=== PATIENT | female | born 1970 | race Caucasian/White ===

== ENCOUNTER 2019-06-25 07:50 | Emergency (ER) | payer BC, SELFPAY ==
[2019-01-18 08:31] VITALS: BMI 21.0
[2019-06-25 07:51] VITALS: BP 155/87; PULSE 121; RESP 15; TEMP 36.8; BMI 18.8
--- NOTE | 2019-06-25 08:06 | EKG12_ITS ---
Test Reason : Blood Pressure : / mmHG Vent. Rate : 094 BPM Atrial Rate : 094 BPM P-R Int : 114 ms QRS Dur : 100 ms QT Int : 380 ms P-R-T Axes : 051 -15 069 degrees QTc Int : 475 ms Normal sinus rhythm Devfh-Xslwoyhtz-Hawiy Abnormal ECG Confirmed by STEPHANIE JACINTO ([id number]), writer editor JENSEN MATOS ([id number]) on 06/30/2019 9:18:59 AM Referred By: Confirmed By:STEPHANIE JACINTO
--- NOTE | 2019-06-25 08:07 | ED.VIS.GEN ---
History of Present Illness Chief Complaint: Back Informant: Patient Onset: Weeks Maximum Severity: Mild Narrative: Patient presents complaining of sharp stabbing pain primarily to the left parascapular area but sometimes to her entire back for 1 week in addition she is having a sharp stabbing pain to the left facial area for same period of time. She is had no fever no cough no chest pain no numbness weakness paresthesias other than the states she feels sometimes her whole body is numb all over, she was seen at [facility] ED had ED evaluation that consisted of many things including chest x-ray CT head that were unremarkable she was started on carbamazepine told her follow-up with her family physician she continues to have spasms of pain that are paroxysmal come and go with no warning. She has no history of MO PE or DVT she takes no medications except for the carbamazepine Past Medical History - Allergies and Home Meds Allergies/Adverse Reactions: Allergies No Known Allergies Allergy (Unverified 01/18/19 08:32) Primary Care Physician: Rusty Sutton DO [Primary Care Provider] - Past Medical History: None Smoking Status: Current every day smoker Review of Systems General: Reports: - - She has start up stabbing diffuse pain involving her back that primarily is in the left parascapular area she also complains of sharp stabbing left facial pain that is also intermittent. Denies: Chills, Fever, Sweats Eyes: Denies: Visual changes - bilaterally, Diplopia ENT: Denies: Rhinorrhea, Sore throat Cardiovascular: Denies: Chest pain, Palpitations Respiratory: Denies: Dyspnea, Cough, Dyspnea on exertion Gastrointestinal: Denies: Abdominal pain, Nausea, Vomiting, Diarrhea, Melena, Hematochezia Genitourinary: Denies: Dysuria, Hematuria, Frequency Musculoskeletal: Denies: Back pain, Extremity Pain Skin: Denies: Rash, Wounds Neurological: Denies: Headache, Weakness, Numbness Physical Exam Vital Signs/Narrative: Vital Signs Temp Pulse Resp BP 06/25/19 07:51 98.2 F 121 H 15 155/87 H General: Well nourished, Well developed, No Acute Distress Head: Normocephalic, Atraumatic Eyes: Perrl, EOMI ENT: Moist mucous membranes, No rhinorrhea Neck: Supple, Nontender Cardiovascular: Regular rate, Regular rhythm, No murmurs Respiratory: No distress, CTA bilaterally, Chest nontender Abdomen: Soft, Nontender, Nondistended, Normal bowel sounds Back: Nontender, Normal Inspection Extremities: Nontender, No edema Skin: Normal color, No rash Neurological: Alert, Oriented x3, Cranial nerves II-XII grossly intact, Normal Strength, Normal Sensation, - - Her physical exam and neurologic exam unremarkable she is awake and alert head neck chest abdomen normal palpation of the chest and the back shows no focal area of pain but her points to the left parascapular area as the area that seems to be most troubling to her she has full range of motion of the shoulder this area is not tender to palpation she is able to stand and walk without difficulty her cranial nerve facial exam neck exam unremarkable Psychological: Normal affect, Normal Mood Diagnostic/Tx/Re-eval - Medical Decision Making I had a long conversation with the patient and her she assures me she had ED evaluation at [facility] that included a head CT chest x-ray, she reports only partial improvement with the carbamazepine I explained all of the above to her explained the potential differential to include a wide right of conditions, she indicates sometimes she feels if she has shooting numbness down both arms but mostly the left, I explained repeating these test that were just done a few days ago would not be of any benefit to her as she indicates they were normal she agrees that I offered her some pain management such as nonsteroidals but she refused that we did agree to obtain an EKG The patient's EKG shows a sinus rhythm there is deflection in the upstroke of the R wave that could represent Mqyho-Dsrwgwnua-Tsgdc syndrome the patient has no history of that and she has no cardiovascular symptoms of head neck chest or abdominal pain, she works reading [employer] she is very active she does not experience any exacerbation or triggering of these pains with any type of activity they are paroxysmal Patient's in no distress resting comfortably bed her exam is unchanged we did obtain CT of the neck given her symptoms a CT neck shows no fracture anything acute mild degenerative change, explained all the above to the patient this time she is comfortable discharge home follow with outpatient vitals for the management of all the above, she was also given referral to cardiology given the EKG findings of possible Zxqfw-Ovjcnijdy-Lbbqa and she is comfortable with this discharge plan ED Disposition - Plan for ED Patient: Diagnosis: Upper back pain Instructions: BACK SPASM, No Trauma, Back Sprain/Strain Referrals: Herman,Rusty, DO [Primary Care Provider] - Willis Pollock MD [STAFF PHYSICIAN] -
--- NOTE | 2019-06-25 08:23 | CT_ITS ---
STUDY: CT CERVICAL SPINE WITHOUT CONTRAST REASON FOR EXAM: Female, 49 years old. BILAT ARM PAIN, BURNING/NUMBNESS BACK OF NECK, NO KNOWN INJURY RADIATION DOSAGE (If Supplied By Facility): CTDIvol = ( 13.49 ) mGy, DLP = ( 322.64 ) mGycm TECHNIQUE: High resolution transaxial imaging was performed without contrast material. Sagittal and coronal images were reconstructed. Individualized dose optimization techniques were used for this CT. COMPARISON: None FINDINGS: Normal craniovertebral junction. Normal anterior atlantoaxial articulation. Normal odontoid process. 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 Normal vertebral bodies and posterior osseous elements. C2-3: Normal endplates. Normal disc height and morphology. Normal central canal and intervertebral neuroforamina. C3-4: There is minimal disc space narrowing is no significant neural foramina narrowing or central stenosis. C4-5: Normal endplates. Normal disc height and morphology. Normal central canal and intervertebral neuroforamina. C5-6: There is facet arthropathy left greater than right without neural foramina narrowing or central stenosis. C6-7: Normal endplates. Normal disc height and morphology. Normal central canal and intervertebral neuroforamina. C7-T1: Normal endplates. Normal disc height and morphology. Normal central canal and intervertebral neuroforamina. There is emphysematous change in the lung apices. CT/Spine Cervical without Contras IMPRESSION: Minimal degenerative change within the cervical spine. No visualized acute fracture. Pulmonary emphysema and biapical scarring. Electronically Signed: Yuridia Lr MD at 8:54 EDT Tel , Service support ,
[2019-06-25 09:26] VITALS: BP 102/60; PULSE 72; RESP 18
== END 2019-06-25 09:27 | disposition home or self-care (01) ==
LOC: ED 08:11
PROVIDERS: Emergency Provider Emergency Medicine; PCP Family Medicine
DX: M54.9 Dorsalgia, unspecified (principal); R20.0 Anesthesia of skin; R51 Headache; F17.200 Nicotine dependence, unspecified, uncomplicated
CPT/HCPCS: 72125; 93005; 99282

== ENCOUNTER → 2019-08-02 12:03 | Outpatient (CLI) | payer BC, SELFPAY ==
[2019-07-28 15:50] VITALS: BMI 18.7
--- NOTE | 2019-08-02 12:04 | MRI_ITS ---
STUDY: MRI BRAIN WITH AND WITHOUT CONTRAST REASON FOR EXAM: Female, 49 years old. numbness in neck, cheeks to chin, upper back x 2 months TECHNIQUE: Standardized multiplanar fat and water weighted pulse sequences were obtained. IV Yes YES was administered for the contrast portion of the examination. COMPARISON: None. FINDINGS: Normal size of the ventricles and extra-axial spaces for the patient''s age. Normal white matter tracts of the supratentorial brain. There is no evidence for recent intracranial ischemia or other cause of cytotoxic edema on diffusion weighted imaging (DWI). Normal T2* images of the brain without demonstrated susceptibility artifact. There is no demonstrated hemosiderin stain. There are no demyelinating plagues of the supratentorial brain, brainstem or cerebellum. There are no findings suspicious for multiple sclerosis (MS). No hydrocephalus. No midline shift. Normal bilateral basal ganglia. Normal thalami. There is no extra-axial fluid accumulation. Normal flow voids within the major intracranial circulation suggesting patency by spin echo criteria. Normal venous enhancement. There is no enhancing intra-axial or extra-axial abnormality. No demonstrated abnormal dural or meningeal enhancement. Normal sella turcica, pituitary gland, infundibular stalk, optic chiasm and hypothalamus. Normal tectal plate and pineal gland. Normal midbrain, romi and medulla. Normal cerebellum. Normal basal cisterns. Normal bilateral temporal bones. Normal bilateral internal auditory canals. No demonstrated orbital abnormality, within the constraints of a routine brain study. Mild mucosal thickening is present in the left maxillary sinus. Normal calvarium and skull base. Normal visualized soft tissue structures. MRI/Brain W/WO Contrast IMPRESSION: 1. Negative unenhanced and enhanced MRI of the brain. 2. No demonstrated acute or significant intracranial process on the current exam. Electronically Signed: Talib Aquino MD at 19:08 EDT , Service support ,
== END ==
PROVIDERS: PCP Family Medicine; Referring Provider Family Medicine; Visit Provider Family Medicine
DX: R20.2 Paresthesia of skin (principal); R20.0 Anesthesia of skin
CPT/HCPCS: 70553; A9575

== ENCOUNTER → 2019-08-04 17:42 | Outpatient (CLI) | payer BC, SELFPAY ==
[2019-08-02 15:42] VITALS: BMI 18.8
[2019-08-04 13:07] VITALS: BMI 18.8
--- NOTE | 2019-08-04 18:09 | MRI_ITS ---
STUDY: MRI CERVICAL SPINE WITHOUT CONTRAST REASON FOR EXAM: Female, 49 years old. arm numbness bilaterally TECHNIQUE: Standardized fat and water weighted pulse sequences were obtained in the sagittal and axial planes. COMPARISON: None FINDINGS: Normal foramen magnum and brainstem-cervical cord junction. Normal craniovertebral junction. Normal anterior atlantoaxial articulation. Normal odontoid process. Normal cervical lordosis. Normal vertebral bodies and posterior osseous elements. C2-3: Normal endplates. Normal disc height, signal and morphology. Normal central canal and intervertebral neural foramina. C3-4: Normal endplates. Normal disc height, signal and minor bulging of the disc. Normal central canal and intervertebral neural foramina. C4-5: Normal endplates. Normal disc height, signal and morphology. Normal central canal and intervertebral neural foramina. C5-6: Normal endplates. Normal disc height, signal and morphology. Normal central canal and intervertebral neural foramina. C6-7: Normal endplates. Normal disc height, signal and morphology. Normal central canal and intervertebral neural foramina. C7-T1: Normal endplates. Normal disc height, signal and morphology. Normal central canal and intervertebral neural foramina. Normal cervical cord. Normal visualized soft tissue structures. MRI/Spine Cervical (Routine) IMPRESSION: No evidence for acute fracture or other significant bony pathology.. Minor bulging of the disc at C3-4. No focal disc protrusion significant spinal stenosis or cord compression. Electronically Signed: Teo Zamorano MD at 20:21 EDT , Service support ,
== END ==
PROVIDERS: PCP Family Medicine; Referring Provider Family Medicine; Visit Provider Family Medicine
DX: R20.2 Paresthesia of skin (principal); R20.0 Anesthesia of skin
CPT/HCPCS: 72141

== ENCOUNTER → 2019-08-04 | Outpatient (CLI) | payer BC, SELFPAY ==
[2019-08-04 13:07] VITALS: BMI 18.8
== END | disposition home or self-care (01) ==
LOC: LABSPEC 14:28
PROVIDERS: PCP Family Medicine; Referring Provider Internal Medicine; Visit Provider Internal Medicine
DX: R07.9 Chest pain, unspecified (principal)
CPT/HCPCS: 84484

== ENCOUNTER → 2019-08-25 13:15 | Outpatient (CLI) | payer BC, SELFPAY ==
[2019-08-18 19:06] VITALS: BMI 18.8
[2019-08-25 10:09] VITALS: BMI 19.5
--- NOTE | 2019-08-25 13:17 | EKG12_ITS ---
Test Reason : TACHY Blood Pressure : / mmHG Vent. Rate : 088 BPM Atrial Rate : 088 BPM P-R Int : 154 ms QRS Dur : 076 ms QT Int : 382 ms P-R-T Axes : 028 002 019 degrees QTc Int : 462 ms Normal sinus rhythm Left ventricular hypertrophy Abnormal ECG Confirmed by EFE OBRIEN, QUANG ([id number]), greeting card editor JENSEN MATOS ([id number]) on 08/29/2019 1:15:11 PM Referred By: Kelsey Curran Confirmed By:BERNARDO WILKS MD
--- NOTE | 2019-08-25 13:17 | US_ITS ---
STUDY: THYROID ULTRASOUND REASON FOR EXAM: Female, 49 years old. Hyperthyroidism TECHNIQUE: Ultrasound evaluation of the thyroid was performed with real-time and static pollack-scale imaging. COMPARISON: None. FINDINGS: RIGHT LOBE: The right lobe of the thyroid gland measures 4.8 cm x 1.4 cm x 1.2 cm. There is a heterogeneous echotexture. There are no demonstrated solid, cystic or complex lesions. LEFT LOBE: The left lobe of the thyroid gland measures 5 cm x 1.3 cm x 1.4 cm. There is a heterogeneous echotexture. There are no demonstrated solid, cystic or complex lesions. ISTHMUS: The isthmus measures 4.0 mm. The regional lymph nodes are normal. US/Thyroid IMPRESSION: Heterogeneous appearance of both lobes of the thyroid. Electronically Signed: Josh Miranda, at 14:27 EDT , Service support ,
[2019-08-25 13:51] LABS: Free T3 7.1 pg/mL (2.18-3.98); T4 Free Direct 1.93 ng/dL (0.76-1.46)
[2019-08-26 18:00] LABS: Thyroid Peroxidase AB 45 IU/mL (0-34)
== END ==
PROVIDERS: Nurse Practitioner Family; PCP Family Medicine; Referring Provider Nurse Practitioner Family; Visit Provider Nurse Practitioner Family
DX: E05.90 Thyrotoxicosis, unspecified without thyrotoxic crisis or storm (principal); R00.0 Tachycardia, unspecified
CPT/HCPCS: 76536; 84439; 84481; 86376; 93005

== ENCOUNTER → 2019-09-06 12:13 | Outpatient (CLI) | payer BC, SELFPAY ==
[2019-08-18 19:06] VITALS: BMI 18.8
[2019-08-25 16:22] VITALS: BMI 18.8
--- NOTE | 2019-09-06 12:14 | STE_ITS ---
Reason For Study: WPW, CHEST PAIN Stress Results Protocol: Stress Echocardiogram Maximum Predicted HR: 173 bpm Target HR: 147 bpm % Maximum Predicted HR: 105 % DurationHeart Rate Stage (mm:ss) (bpm) BP Comment BASELINE 90 128/78STATES SHE ALWAYS HAS CP RADIATING TO JAW CLIFF PROTOCOL- STAGE 1 3:00 134 124/80NO INCREASE IN CP CLIFF RPOTOCOL- STAGE 2 3:00 160 148/72NO CHANGE IN SX CLIFF PROTOCOL- STAGE 3 3:00 169 150/78NO CHANGE IN SX CLIFF PROTOCOL- STAGE 4 1:00 181 / NO CHANGE IN SX RECOVERY 105 124/78 Stress Duration: 10:00 mm:ss Maximum Stress HR: 181 bpm Baseline Echocardiogram Findings The estimated ejection fraction is 65 %. Stress Echo Wall motion Data Resting WM Intermediate WM Stress WM Resting Wall Motion Wall Motion Stress No regional wall motion No regional wall motion abnormalities noted. abnormalities noted. EKG Data The baseline ECG displays normal sinus rhythm. The patient exercised according to the regular Cliff protocol for a total duration of 10:01. The maximum heart rate attained was 181 beats per minute. This was 104% of maximum predicted heart rate. The patient exercised into stage 4 of the Cliff protocol. During stress, there were no ST or T wave changes noted to suggest ischemia. No arrhythmias noted. No clinical angina was noted. Interpretation Summary The estimated ejection fraction is 65 %. Normal, adequate, treadmill echocardiogram. Negative for ischemia by EKG and echocardiographic criteria. No anginal symptoms noted. No arrhythmias noted. Average exercise capacity for age. Final LVEF is 75%. Test terminated due to attainment of target heart rate. Patient tolerated procedure well. No complications. Ordering Physician: Parth Castelan Referring Physician: Parth Castelan Performed By: Claudia Shah, RDCS, RVT
== END ==
PROVIDERS: PCP Family Medicine; Referring Provider Internal Medicine Cardiovascular Disease; Visit Provider Internal Medicine Cardiovascular Disease
DX: I45.6 Pre-excitation syndrome (principal); R07.9 Chest pain, unspecified; R20.0 Anesthesia of skin; R20.2 Paresthesia of skin; I10 Essential (primary) hypertension
CPT/HCPCS: 93017; 93350

== ENCOUNTER → 2019-09-14 14:40 | Outpatient (CLI) | payer BC, SELFPAY ==
[2019-09-14 13:59] VITALS: BMI 18.8
[2019-09-14 16:22] LABS: Free T3 5.1 pg/mL (2.18-3.98); Thyroid Stim Hormone (TSH) < 0.01 uIU/mL (0.358-3.74)
== END ==
PROVIDERS: PCP Family Medicine; Referring Provider Nurse Practitioner Family; Visit Provider Nurse Practitioner Family
DX: E05.90 Thyrotoxicosis, unspecified without thyrotoxic crisis or storm (principal)
CPT/HCPCS: 36415; 84439; 84443; 84481

== ENCOUNTER → 2019-10-05 10:28 | Outpatient (CLI) | payer BC, SELFPAY ==
[2019-10-03 08:46] VITALS: BMI 18.8
[2019-10-05 13:14] LABS: Free T3 4.6 pg/mL (2.18-3.98); T4 Free Direct 1.76 ng/dL (0.76-1.46); Thyroid Stim Hormone (TSH) < 0.01 uIU/mL (0.358-3.74)
== END ==
PROVIDERS: PCP Family Medicine; Referring Provider Nurse Practitioner Family; Visit Provider Nurse Practitioner Family
DX: E05.90 Thyrotoxicosis, unspecified without thyrotoxic crisis or storm (principal)
CPT/HCPCS: 36415; 84439; 84443; 84481

== ENCOUNTER → 2019-11-02 12:25 | Outpatient (CLI) | payer BC, SELFPAY ==
[2019-10-03 08:46] VITALS: BMI 18.8
[2019-11-02 15:55] LABS: Free T3 3.5 pg/mL (2.18-3.98); T4 Free Direct 1.37 ng/dL (0.76-1.46); Thyroid Stim Hormone (TSH) < 0.01 uIU/mL (0.358-3.74)
== END ==
PROVIDERS: PCP Family Medicine; Referring Provider Internal Medicine Endocrinology, Diabetes & Metabolism; Visit Provider Internal Medicine Endocrinology, Diabetes & Metabolism
DX: E05.00 Thyrotoxicosis with diffuse goiter without thyrotoxic crisis or storm (principal)
CPT/HCPCS: 36415; 84439; 84443; 84481

== ENCOUNTER → 2019-11-23 13:09 | Outpatient (CLI) | payer BC, SELFPAY ==
[2019-11-16 15:03] VITALS: BMI 19.8
[2019-11-23 16:27] LABS: Free T3 2.7 pg/mL (2.18-3.98); T4 Free Direct 1.11 ng/dL (0.76-1.46); Thyroid Stim Hormone (TSH) < 0.01 uIU/mL (0.358-3.74)
== END ==
PROVIDERS: PCP Family Medicine; Referring Provider Internal Medicine Endocrinology, Diabetes & Metabolism; Visit Provider Internal Medicine Endocrinology, Diabetes & Metabolism
DX: E05.00 Thyrotoxicosis with diffuse goiter without thyrotoxic crisis or storm (principal)
CPT/HCPCS: 36415; 84439; 84443; 84481

== ENCOUNTER → 2019-12-22 14:47 | Outpatient (CLI) | payer BC, SELFPAY ==
[2019-11-16 15:03] VITALS: BMI 19.8
[2019-12-22 17:13] LABS: Free T3 2.1 pg/mL (2.18-3.98); T4 Free Direct 1.01 ng/dL (0.76-1.46); Thyroid Stim Hormone (TSH) 0.07 uIU/mL (0.358-3.74)
== END ==
PROVIDERS: PCP Family Medicine; Referring Provider Internal Medicine Endocrinology, Diabetes & Metabolism; Visit Provider Internal Medicine Endocrinology, Diabetes & Metabolism
DX: E05.00 Thyrotoxicosis with diffuse goiter without thyrotoxic crisis or storm (principal)
CPT/HCPCS: 36415; 84439; 84443; 84481

== ENCOUNTER → 2020-01-20 13:55 | Outpatient (CLI) | payer BC, SELFPAY ==
[2019-11-16 15:03] VITALS: BMI 19.8
[2020-01-20 16:03] LABS: Free T3 2.2 pg/mL (2.18-3.98); T4 Free Direct 0.69 ng/dL (0.76-1.46); Thyroid Stim Hormone (TSH) 7.15 uIU/mL (0.358-3.74)
== END ==
PROVIDERS: PCP Family Medicine; Referring Provider Internal Medicine Endocrinology, Diabetes & Metabolism; Visit Provider Internal Medicine Endocrinology, Diabetes & Metabolism
DX: E05.00 Thyrotoxicosis with diffuse goiter without thyrotoxic crisis or storm (principal)
CPT/HCPCS: 36415; 84439; 84443; 84481

== ENCOUNTER 2020-02-16 11:47 | Outpatient (RCR) | payer BC, SELFPAY ==
[2020-01-30 14:38] VITALS: BMI 20.3
[2020-02-16 16:18] LABS: Free T3 2.1 pg/mL (2.18-3.98); T4 Free Direct 0.69 ng/dL (0.76-1.46)
== END 2020-03-12 23:59 ==
LOC: BIMLAB 11:47
PROVIDERS: PCP Family Medicine; Referring Provider Internal Medicine Endocrinology, Diabetes & Metabolism; Visit Provider Internal Medicine Endocrinology, Diabetes & Metabolism
DX: E05.00 Thyrotoxicosis with diffuse goiter without thyrotoxic crisis or storm (principal)
CPT/HCPCS: 36415; 84439; 84443; 84481

== ENCOUNTER 2020-03-23 15:10 | Outpatient (RCR) | payer BC, SELFPAY ==
[2020-03-12 14:24] VITALS: BMI 20.9
[2020-03-13 14:46] VITALS: BMI 20.3
[2020-03-23 17:31] LABS: Free T3 2.1 pg/mL (2.18-3.98); T4 Free Direct 0.82 ng/dL (0.76-1.46); Thyroid Stim Hormone (TSH) 9.42 uIU/mL (0.358-3.74)
== END 2020-04-12 23:59 ==
LOC: BIMLAB 15:10
PROVIDERS: PCP Family Medicine; Referring Provider Internal Medicine Endocrinology, Diabetes & Metabolism; Visit Provider Internal Medicine Endocrinology, Diabetes & Metabolism
DX: E05.00 Thyrotoxicosis with diffuse goiter without thyrotoxic crisis or storm (principal)
CPT/HCPCS: 36415; 84439; 84443; 84481

== ENCOUNTER → 2020-04-11 13:40 | Outpatient (CLI) | payer BC, SELFPAY ==
[2020-03-13 14:46] VITALS: BMI 20.3
[2020-04-11 15:52] LABS: Free T3 2.4 pg/mL (2.18-3.98); Thyroid Stim Hormone (TSH) 5.66 uIU/mL (0.358-3.74)
== END ==
PROVIDERS: Internal Medicine Endocrinology, Diabetes & Metabolism; PCP Family Medicine; Visit Provider Family Medicine
DX: E05.00 Thyrotoxicosis with diffuse goiter without thyrotoxic crisis or storm (principal)
CPT/HCPCS: 36415; 84439; 84443; 84481

== ENCOUNTER 2020-05-10 13:19 | Outpatient (RCR) | payer BC, SELFPAY ==
[2020-03-13 14:46] VITALS: BMI 20.3
[2020-05-10 15:34] LABS: Free T3 2.5 pg/mL (2.18-3.98); T4 Free Direct 0.97 ng/dL (0.76-1.46); Thyroid Stim Hormone (TSH) 3.64 uIU/mL (0.358-3.74)
== END 2020-05-13 23:59 ==
LOC: BIMLAB 13:19
PROVIDERS: PCP Family Medicine; Referring Provider Internal Medicine Endocrinology, Diabetes & Metabolism; Visit Provider Internal Medicine Endocrinology, Diabetes & Metabolism
DX: E05.00 Thyrotoxicosis with diffuse goiter without thyrotoxic crisis or storm (principal)
CPT/HCPCS: 36415; 84439; 84443; 84481

== ENCOUNTER → 2020-05-30 | Outpatient (CLI) | payer BC, SELFPAY ==
[2020-05-30 14:27] VITALS: BMI 20.9
[2020-06-04 13:22] LABS: HPV Reflexed? NOT INDICATED
== END | disposition home or self-care (01) ==
LOC: LABSPEC 15:17
PROVIDERS: PCP Family Medicine; Referring Provider Family Medicine; Visit Provider Family Medicine
DX: Z01.419 Encounter for gynecological examination (general) (routine) without abnormal findings (principal)
CPT/HCPCS: 88175; G0145

== ENCOUNTER 2020-06-07 13:41 | Outpatient (RCR) | payer BC, SELFPAY ==
[2020-03-13 14:46] VITALS: BMI 20.3
[2020-05-30 14:27] VITALS: BMI 20.9
[2020-06-07 16:07] LABS: Free T3 2.3 pg/mL (2.18-3.98); T4 Free Direct 1.01 ng/dL (0.76-1.46); Thyroid Stim Hormone (TSH) 2.19 uIU/mL (0.358-3.74)
== END 2020-06-10 23:59 ==
LOC: BIMLAB 13:41
PROVIDERS: PCP Family Medicine; Referring Provider Internal Medicine Endocrinology, Diabetes & Metabolism; Visit Provider Internal Medicine Endocrinology, Diabetes & Metabolism
DX: E05.00 Thyrotoxicosis with diffuse goiter without thyrotoxic crisis or storm (principal)
CPT/HCPCS: 36415; 84439; 84443; 84481

== ENCOUNTER → 2020-07-07 08:39 | Outpatient (CLI) | payer BC, SELFPAY ==
[2020-06-25 14:44] VITALS: BMI 21.9
[2020-07-04 14:52] VITALS: BMI 21.2
--- NOTE | 2020-07-07 08:43 | US_ITS ---
STUDY: ABDOMINAL ULTRASOUND REASON FOR EXAM: Female, 50 years old. Chronic left upper quadrant pain, nausea TECHNIQUE: Transabdominal ultrasound was performed with real-time and static pollack scale imaging. TECHNICAL QUALITY: Limited. Examination limited by bowel gas. COMPARISON: None. FINDINGS: Liver: The liver measures 15.5 cm. There is normal echogenicity of the liver. The bile ducts are within normal limits. There is hepatic color flow. The direction of portal flow is hepatopetal. There is no demonstrated mass lesion. Portal vein measurement: Gallbladder: Normal distended gallbladder. The gallbladder wall measures 1 mm. There is a negative sonographic Stone''s sign. There is no pericholecystic fluid. There are no gallstones. Common Bile Duct (C.B.D.): The common bile duct measures 3 mm. Pancreas: Visualized pancreas is sonographically normal Spleen: Normal size of the spleen. The spleen measures 8.3 cm. Right Kidney: Normal size of the right kidney. The right kidney measures 10.2 x 4.8 x 4.1 cm. Normal renal cortex. The right cortex measures 0.8 cm. There is no demonstrated renal mass or cyst. There is no right hydronephrosis. Left Kidney: Normal size of the left kidney. The left kidney measures 9.2 x 4.5 x 4.8 cm. Normal renal cortex. The left cortex measures 1.3 cm. There is no demonstrated renal mass or cyst. There is no left hydronephrosis. Aorta: Tapers normally I.V.C.: The IVC is patent. There is no ascites. US/Abdomen Complete IMPRESSION: No suspicious sonographic findings Electronically Signed: Samir Song MD at 10:41 EDT , Service support ,
== END ==
PROVIDERS: PCP Family Medicine; Referring Provider Nurse Practitioner Family; Visit Provider Nurse Practitioner Family
DX: R10.9 Unspecified abdominal pain (principal)
CPT/HCPCS: 76700

== ENCOUNTER → 2020-07-11 12:32 | Outpatient (CLI) | payer BC, SELFPAY ==
[2020-07-04 14:52] VITALS: BMI 21.2
[2020-07-11 16:04] LABS: Free T3 2.2 pg/mL (2.18-3.98); T4 Free Direct 0.95 ng/dL (0.76-1.46); Thyroid Stim Hormone (TSH) 2.31 uIU/mL (0.358-3.74)
== END ==
PROVIDERS: PCP Family Medicine; Visit Provider Internal Medicine Endocrinology, Diabetes & Metabolism
DX: E05.90 Thyrotoxicosis, unspecified without thyrotoxic crisis or storm (principal)
CPT/HCPCS: 36415; 84439; 84443; 84481

== ENCOUNTER → 2020-07-12 15:25 | Outpatient (CLI) | payer BC, SELFPAY ==
[2020-05-30 14:27] VITALS: BMI 20.9
[2020-07-04 14:52] VITALS: BMI 21.2
--- NOTE | 2020-07-12 15:27 | BI_ITS ---
MAMMOGRAPHY - BILATERAL SCREENING REASON FOR EXAM: Female, 50 years old. Routine annual screening examination. PERTINENT HISTORY: Non-contributory. TECHNIQUE: Digital bilateral breast koko (3D mammographic acquisition) in the CC and MLO projections. 2-D mediolateral oblique (MLO) and craniocaudad (CC) views of both breasts were obtained. CAD: Full Field Digital Mammography with Computer Added Detection was performed. COMPARISON: Comparison is made with prior examination dated 06/21/2019. FINDINGS: Breast Composition: The breasts are extremely dense, which lowers the sensitivity of mammography. There are no dominant masses or suspicious calcifications. No other significant abnormalities are identified. There has been no significant change since the prior study. BI/SCRN MAMM (CAD)W/KOKO BILAT IMPRESSION: Stable bilateral screening mammogram. Yearly follow-up mammogram recommended. (A) ASSESSMENT CATEGORY: BIRADS Category 1: Negative. A letter regarding these results will be sent to the patient by the facility within 30 days. Approximately 10% of breast cancers are not detected by mammography. A normal mammogram should not delay biopsy of a clinically suspicious abnormality. [id number] Electronically Signed: Josh Miranda MD at 8:09 EDT , Service support ,
== END ==
PROVIDERS: PCP Family Medicine; Referring Provider Family Medicine; Visit Provider Family Medicine
DX: Z12.31 Encounter for screening mammogram for malignant neoplasm of breast (principal)
CPT/HCPCS: 77063; 77067

== ENCOUNTER 2020-08-07 13:16 | Outpatient (RCR) | payer BC, SELFPAY ==
[2020-05-30 14:27] VITALS: BMI 20.9
[2020-07-04 14:52] VITALS: BMI 21.2
[2020-08-07 15:33] LABS: Free T3 2.6 pg/mL (2.18-3.98); T4 Free Direct 0.92 ng/dL (0.76-1.46); Thyroid Stim Hormone (TSH) 2.98 uIU/mL (0.358-3.74)
== END 2020-08-10 23:59 ==
LOC: BIMLAB 13:16
PROVIDERS: PCP Family Medicine; Referring Provider Internal Medicine Endocrinology, Diabetes & Metabolism; Visit Provider Internal Medicine Endocrinology, Diabetes & Metabolism
DX: E05.00 Thyrotoxicosis with diffuse goiter without thyrotoxic crisis or storm (principal)
CPT/HCPCS: 36415; 84439; 84443; 84481

== ENCOUNTER → 2020-08-29 15:49 | Outpatient (CLI) | payer BC, SELFPAY ==
[2020-08-29 14:45] VITALS: BMI 21.6
--- NOTE | 2020-08-29 15:55 | RAD_ITS ---
STUDY: X-RAY CHEST REASON FOR EXAM: Female, 50 years old. SOB, Cough TECHNIQUE: 2 views COMPARISON: None. FINDINGS: Benign apical pleural changes bilaterally. Focal mild tenting of the medial right diaphragm. Negative for consolidation, atelectasis or acute infiltrates. Negative for pleural effusion. Normal size heart. Normal mediastinum and david. Normal visualized pulmonary arteries. Normal visualized aortic arch and descending thoracic aorta. Normal visualized thoracic spine. Normal visualized ribs, clavicles, and shoulders. There is no demonstrated abnormality of the visualized soft tissue structures of the upper abdomen. RAD/Chest PA and Lateral IMPRESSION: No acute cardiopulmonary findings. Mild chronic changes as described above. Negative for consolidation, atelectasis, cardiomegaly or pleural effusion. Electronically Signed: Jimena Crooks MD at 16:05 EDT , Service support ,
== END ==
PROVIDERS: PCP Family Medicine; Referring Provider Nurse Practitioner Family; Visit Provider Nurse Practitioner Family
DX: R06.00 Dyspnea, unspecified (principal); R07.9 Chest pain, unspecified
CPT/HCPCS: 71046

== ENCOUNTER 2020-09-27 13:14 | Outpatient (RCR) | payer BC, SELFPAY ==
[2020-08-11 00:13] VITALS: BMI 20.3
[2020-08-29 14:45] VITALS: BMI 21.6
[2020-09-27 15:26] LABS: Free T3 2.3 pg/mL (2.18-3.98); T4 Free Direct 0.98 ng/dL (0.76-1.46); Thyroid Stim Hormone (TSH) 2.22 uIU/mL (0.358-3.74)
== END 2020-10-10 23:59 ==
LOC: BIMLAB 13:14
PROVIDERS: PCP Family Medicine; Referring Provider Internal Medicine Endocrinology, Diabetes & Metabolism; Visit Provider Internal Medicine Endocrinology, Diabetes & Metabolism
DX: E05.00 Thyrotoxicosis with diffuse goiter without thyrotoxic crisis or storm (principal)
CPT/HCPCS: 36415; 84439; 84443; 84481

== ENCOUNTER → 2020-11-07 14:23 | Outpatient (CLI) | payer BC, SELFPAY ==
[2020-10-19 13:45] VITALS: BMI 21.6
--- NOTE | 2020-11-07 14:40 | CT_ITS ---
STUDY: CT MAXILLOFACIAL SINUSES REASON FOR EXAM: Female, 50 years old. CHRONIC SINUSITIS RADIATION DOSAGE (If Supplied By Facility): CTDIvol = ( 33.06 ) mGy, DLP = ( 850.38 ) mGycm TECHNIQUE: The patient was scanned in a multi detector CT scanner. High resolution axial imaging was performed without the administration of intravenous contrast material. Sagittal and coronal images were reconstructed. Individualized dose optimization techniques were used for this CT. COMPARISON: None. FINDINGS: FRONTAL SINUSES: Normal aeration, without mucosal inflammatory disease. ETHMOIDAL SINUSES: Normal aeration, without mucosal inflammatory disease. MAXILLARY SINUSES: There are air-fluid levels in both maxillary sinuses in keeping with bilateral maxillary sinusitis. SPHENOIDAL SINUSES: Normal aeration, without mucosal inflammatory disease. There is patency of the bilateral maxillary infundibuli with normal uncinate processes, ethmoid bullae, and hiatus semilunaris. Normal bilateral middle turbinates. Normal bilateral inferior turbinates. There is a right sided nasal septal deviation, but without a nasal septal spur. There is patency of the bilateral nasal airways. The visualized osseous structures are normal. The visualized bilateral orbital contents are normal. CT/Sinus/Facial Bone IMPRESSION: Bilateral maxillary sinusitis. Electronically Signed: Josh Miranda MD at 15:19 EDT , Service support ,
== END ==
PROVIDERS: PCP Family Medicine; Referring Provider Otolaryngology Otolaryngology/Facial Plastic Surgery; Visit Provider Otolaryngology Otolaryngology/Facial Plastic Surgery
DX: J32.9 Chronic sinusitis, unspecified (principal)
CPT/HCPCS: 70486

== ENCOUNTER 2020-11-19 13:39 | Outpatient (RCR) | payer BC, SELFPAY ==
[2020-10-03 14:56] VITALS: BMI 21.6
[2020-10-19 13:45] VITALS: BMI 21.6
[2020-11-19 15:50] LABS: Free T3 2.3 pg/mL (2.18-3.98); T4 Free Direct 0.94 ng/dL (0.76-1.46); Thyroid Stim Hormone (TSH) 2.59 uIU/mL (0.358-3.74)
== END 2020-12-11 23:59 ==
LOC: BIMLAB 13:39
PROVIDERS: PCP Family Medicine; Referring Provider Internal Medicine Endocrinology, Diabetes & Metabolism; Visit Provider Internal Medicine Endocrinology, Diabetes & Metabolism
DX: E05.00 Thyrotoxicosis with diffuse goiter without thyrotoxic crisis or storm (principal)
CPT/HCPCS: 36415; 84439; 84443; 84481

== ENCOUNTER → 2020-12-18 | Outpatient (CLI) | payer BC, SELFPAY ==
[2020-12-20 20:08] LABS: Covid Inpatient test code BILL Performed (.)
== END | disposition home or self-care (01) ==
LOC: LABSPEC 15:35
PROVIDERS: PCP Family Medicine; Referring Provider Otolaryngology; Visit Provider Otolaryngology
DX: Z03.818 Encounter for observation for suspected exposure to other biological agents ruled out (principal); Z11.59 Encounter for screening for other viral diseases
CPT/HCPCS: 87635; U0005; U0003

== ENCOUNTER → 2020-12-25 | Outpatient (CLI) | payer BC, SELFPAY ==
--- NOTE | 2020-12-25 08:26 | NASAL_PTH ---
PATIENT: AVELINA APONTE [facility] U#:[id number] AGE/SX: 50/F ROOM: RE12/25/[address]: Dr. Wilber Mendoza MD : 1970 BED: DIS: 12/25/2020 SPEC #: [id number] RECD: 12/25/20 14:46 STATUS: SOLANGE REQ #: [id number] ZANE: 12/25/20 08:[address]: Wilber Mendoza DEPT: SURGICAL PATHOLOGY RECD BY: Emily De Guzman ENTERED: 12/26/20 11:39 SP TYPE: NASAL SPEC OTHR DR: Dr. Franko Powers, [facility] Tissues: A - Ethmoid sinus, NOS B - Ethmoid sinus, NOS Procedures: Decalcification bone/plaque Surgery Specimen Level III HEADER OPERATION: Bilateral maxillary antrostomy, anterior ethmoidectomy PRE-OP DIAGNOSIS: Deviated nasal septum, chronic sinusitis TISSUE SUBMITTED: A ? Right sinus contents, B ? Left sinus contents MICROSCOPIC DIAGNOSIS A. Right sinus contents, curettings: Consistent with chronic sinusitis. Fragments of bone with no pathologic change. B. Left sinus contents, curettings: Consistent with chronic sinusitis. Fragments of bone with no pathologic change. AM:liam 12/31/2020 MICROSCOPIC DESCRIPTION Slides are reviewed. GROSS DESCRIPTION A - Received in fixative is one container labeled with the patient's name and designated right sinus contents. The specimen consists of multiple irregular fragments of hemorrhagic soft tissue mixed with fragments of bone that in aggregate measure 3 x 2.5 x 0.3 cm. The specimen is totally submitted in one cassette after decalcification. B - Received in fixative is one container labeled with the patient's name and designated left sinus contents. The specimen consists of multiple irregular fragments of galvez soft tissue mixed with fragments of bone that in aggregate measure 1.5 x 0.5 x 0.2 cm. The specimen is totally submitted in one cassette after decalcification. / SJ:liam 12/26/20 TC:3 CPT: 97408 x2, 25647 x2
== END | disposition home or self-care (01) ==
LOC: LABSPEC 17:03
PROVIDERS: PCP Family Medicine; Referring Provider Otolaryngology; Visit Provider Otolaryngology
DX: J34.2 Deviated nasal septum (principal); J32.8 Other chronic sinusitis
CPT/HCPCS: 88304; 88311

== ENCOUNTER → 2021-02-08 14:01 | Outpatient (CLI) | payer BC, SELFPAY ==
[2021-02-08 15:25] LABS: Internal QC Validated? YES +Cl - CLEAR BKGD; Pregnancy, Serum, hCG Quali. NEGATIVE Negative
== END ==
PROVIDERS: PCP Family Medicine; Referring Provider Internal Medicine Endocrinology, Diabetes & Metabolism; Visit Provider Internal Medicine Endocrinology, Diabetes & Metabolism
DX: E05.90 Thyrotoxicosis, unspecified without thyrotoxic crisis or storm (principal)
CPT/HCPCS: 36415; 84703

== ENCOUNTER → 2021-02-11 09:58 | Outpatient (CLI) | payer BC, SELFPAY ==
--- NOTE | 2021-02-11 10:01 | NM_ITS ---
STUDY: RADIOPHARMACEUTICAL THERAPY FOR HYPERTHYROIDISM. REASON FOR EXAM: Female, 51 years old. Hyperthyroidism -- TECHNIQUE: The patient ingested 13 mCi of IODINE-131. COMPARISON: None. NM/Therapy I-131 IMPRESSION: The patient ingested 30 mCi of IODINE-131 for treatment of hyperthyroidism. Electronically Signed: Josh Miranda MD at 10:47 EDT , Service support ,
== END ==
PROVIDERS: PCP Family Medicine; Referring Provider Internal Medicine Endocrinology, Diabetes & Metabolism; Visit Provider Internal Medicine Endocrinology, Diabetes & Metabolism
DX: E05.90 Thyrotoxicosis, unspecified without thyrotoxic crisis or storm (principal)
CPT/HCPCS: 79005; A9517

== ENCOUNTER → 2021-03-25 14:05 | Outpatient (CLI) | payer BC, SELFPAY ==
[2021-03-25 15:10] LABS: ALB/GLOB Ratio 0.9 RATIO (0.9-2.4); AST(SGOT) 17 U/L (15-37); Alanine Aminotransfer ALT/SGPT 25 U/L (13-56); Albumin, Serum 3.3 g/dL (3.2-5.0); Alkaline Phosphatase 50 U/L (45-117); Anion Gap 2 (5-15); BUN 13 mg/dL (7-18); BUN/Creat Ratio 13.4 RATIO (10-20); Calcium,Total 8.6 mg/dL (8.5-10.1); Chloride 108 mmol/L (98-107); Creatinine, Serum 0.97 mg/dL (0.55-1.02); EST Glomerular Filtration Rate 65 mL/min (>60); Est Glom Filt Rate - Afr Amer 79 mL/min (>60); Globulin 3.8 g/dL (2.2-4.2); Glucose 93 mg/dL (74-106); Potassium 4.1 mmol/L (3.5-5.1); Protein, Total 7.1 g/dL (6.4-8.2); Sodium Level 137 mmol/L (136-145)
[2021-03-25 15:14] LABS: Free T3 3.7 pg/mL (2.18-3.98); T4 Free Direct 1.41 ng/dL (0.76-1.46); Thyroid Stim Hormone (TSH) 0.06 uIU/mL (0.358-3.74)
== END ==
PROVIDERS: PCP Psychiatry & Neurology Neurology; Visit Provider Internal Medicine Endocrinology, Diabetes & Metabolism
DX: E05.90 Thyrotoxicosis, unspecified without thyrotoxic crisis or storm (principal); N28.9 Disorder of kidney and ureter, unspecified
CPT/HCPCS: 36415; 80053; 84439; 84443; 84481

== ENCOUNTER 2021-04-15 08:01 | Outpatient (CLI) | payer BC, SELFPAY ==
[2021-04-15 12:43] LABS: Free T3 1.3 pg/mL (2.18-3.98); T4 Free Direct 0.58 ng/dL (0.76-1.46)
== END 2021-04-15 23:59 | disposition short-term general hospital (02) ==
LOC: BIMLAB 08:02
PROVIDERS: PCP Family Medicine; Referring Provider Internal Medicine Endocrinology, Diabetes & Metabolism; Visit Provider Internal Medicine Endocrinology, Diabetes & Metabolism
DX: E05.90 Thyrotoxicosis, unspecified without thyrotoxic crisis or storm (principal)
CPT/HCPCS: 36415; 84439; 84443; 84481

== ENCOUNTER 2021-06-14 12:01 | Outpatient (CLI) | payer BC, SELFPAY ==
[2021-06-14 15:11] LABS: Thyroid Stim Hormone (TSH) 3.48 uIU/mL (0.358-3.74)
[2021-06-14 15:24] LABS: Vitamin B12 237 pg/mL (211-911)
== END 2021-06-14 23:59 | disposition home or self-care (01) ==
PROVIDERS: Nurse Practitioner Family; PCP Family Medicine; Referring Provider Internal Medicine Endocrinology, Diabetes & Metabolism; Visit Provider Internal Medicine Endocrinology, Diabetes & Metabolism
DX: E89.0 Postprocedural hypothyroidism (principal); R20.2 Paresthesia of skin
CPT/HCPCS: 36415; 82607; 84439; 84443

== ENCOUNTER 2021-07-15 15:46 | Outpatient (CLI) | payer BC, SELFPAY ==
--- NOTE | 2021-07-15 15:48 | BI_ITS ---
MAMMOGRAPHY - BILATERAL SCREENING REASON FOR EXAM: Female, 51 years old. Routine annual screening examination. PERTINENT HISTORY: Mother with breast cancer. TECHNIQUE: Digital bilateral breast koko (3D mammographic acquisition) in the CC and MLO projections. 2-D mediolateral oblique (MLO) and craniocaudad (CC) views of both breasts were obtained. CAD: Full Field Digital Mammography with Computer Added Detection was performed. COMPARISON: Comparison is made with prior study dated 07/12/2020. FINDINGS: Breast Composition: The breasts are extremely dense, which lowers the sensitivity of mammography. There are no dominant masses or suspicious calcifications. No other significant abnormalities are identified. There has been no significant change since the prior study. BI/SCRN MAMM (CAD)W/KOKO BILAT IMPRESSION: Stable bilateral screening mammogram. Yearly follow-up mammogram recommended. (A) ASSESSMENT CATEGORY: BIRADS Category 1: Negative. A letter regarding these results will be sent to the patient by the facility within 30 days. Approximately 10% of breast cancers are not detected by mammography. A normal mammogram should not delay biopsy of a clinically suspicious abnormality. [id number] Electronically Signed: Josh Miranda MD at 9:11 EDT ,
== END 2021-07-15 23:59 | disposition home or self-care (01) ==
LOC: OPBI 15:47
PROVIDERS: PCP Family Medicine; Visit Provider Physician Assistant
DX: Z12.31 Encounter for screening mammogram for malignant neoplasm of breast (principal)
CPT/HCPCS: 77063; 77067

== ENCOUNTER → 2021-12-18 | Outpatient (CLI) | payer BC, SELFPAY ==
[2021-12-18 17:27] LABS: Vitamin B12 369 pg/mL (211-911)
[2021-12-18 17:42] LABS: T4 Free Direct 1.08 ng/dL (0.76-1.46); Thyroid Stim Hormone (TSH) 9.85 uIU/mL (0.358-3.74)
== END | disposition home or self-care (01) ==
LOC: BIMLAB 16:03
PROVIDERS: Psychiatry & Neurology Neurology; PCP Family Medicine; Referring Provider Family Medicine; Visit Provider Family Medicine
DX: E03.9 Hypothyroidism, unspecified (principal)
CPT/HCPCS: 36415; 82607; 84439; 84443

== ENCOUNTER → 2022-02-17 | Outpatient (CLI) | payer BC, SELFPAY ==
[2022-02-17 12:36] LABS: Thyroid Stim Hormone (TSH) 2.11 uIU/mL (0.358-3.74)
== END | disposition home or self-care (01) ==
LOC: BIMLAB 10:15
PROVIDERS: PCP Family Medicine; Referring Provider Physician Assistant; Visit Provider Physician Assistant
DX: E03.9 Hypothyroidism, unspecified (principal)
CPT/HCPCS: 36415; 84439; 84443

== ENCOUNTER → 2022-05-20 | Outpatient (CLI) | payer BC, SELFPAY ==
[2022-05-20 13:02] LABS: T4 Free Direct 1.38 ng/dL (0.76-1.46); Thyroid Stim Hormone (TSH) 2.02 uIU/mL (0.358-3.74)
== END | disposition home or self-care (01) ==
PROVIDERS: PCP Family Medicine; Referring Provider Family Medicine; Visit Provider Family Medicine
DX: E03.9 Hypothyroidism, unspecified (principal)
CPT/HCPCS: 36415; 84439; 84443

== ENCOUNTER → 2022-07-16 | Outpatient (CLI) | payer BC, SELFPAY ==
--- NOTE | 2022-07-16 08:35 | BI_ITS ---
MAMMOGRAPHY - BILATERAL SCREENING REASON FOR EXAM: Female, 52 years old. Routine annual screening examination. PERTINENT HISTORY: Mother with breast cancer. TECHNIQUE: Digital bilateral breast koko (3D mammographic acquisition) in the CC and MLO projections. 2-D mediolateral oblique (MLO) and craniocaudad (CC) views of both breasts were obtained. CAD: Full Field Digital Mammography with Computer Added Detection was performed. COMPARISON: Comparison is made with prior study July 15, 2021 and July 12, 2020. FINDINGS: Breast Composition: The breasts are extremely dense, which lowers the sensitivity of mammography. There are no dominant masses or suspicious calcifications. Stable small benign-appearing bilateral axillary lymph nodes. No other significant abnormalities are identified. There has been no significant change since the prior study. BI/SCRN MAMM (CAD)W/KOKO BILAT IMPRESSION: Stable bilateral screening mammogram. Yearly follow-up mammogram recommended. (A) ASSESSMENT CATEGORY: BIRADS Category 2: Benign. A letter regarding these results will be sent to the patient by the facility within 30 days. Approximately 10% of breast cancers are not detected by mammography. A normal mammogram should not delay biopsy of a clinically suspicious abnormality. [id number] Electronically Signed: Josh Mrianda MD at 13:47 EDT ,
== END | disposition home or self-care (01) ==
LOC: OPBI 08:34
PROVIDERS: PCP Family Medicine; Visit Provider Family Medicine
DX: Z12.31 Encounter for screening mammogram for malignant neoplasm of breast (principal); Z80.3 Family history of malignant neoplasm of breast
CPT/HCPCS: 77063; 77067

== ENCOUNTER → 2022-12-16 | Outpatient (CLI) | payer BC, SELFPAY ==
[2022-12-16 12:50] LABS: Follicle Stimulating Hormone 9.9 mIU/mL; Luteinizing Hormone 9.8 mIU/mL; T4 Free Direct 1.24 ng/dL (0.76-1.46); Thyroid Stim Hormone (TSH) 1.85 uIU/mL (0.358-3.74)
== END | disposition home or self-care (01) ==
LOC: BIMLAB 09:08
PROVIDERS: PCP Family Medicine; Visit Provider Family Medicine
DX: E03.9 Hypothyroidism, unspecified (principal); Z78.0 Asymptomatic menopausal state
CPT/HCPCS: 36415; 83001; 83002; 84439; 84443

== ENCOUNTER → 2022-12-18 | Outpatient (CLI) | payer BC, SELFPAY | END | disposition home or self-care (01) | LOC: LABSPEC 08:04 | PROVIDERS: PCP Family Medicine; Visit Provider Family Medicine | DX: Z01.419 Encounter for gynecological examination (general) (routine) without abnormal findings (principal) | CPT/HCPCS: 87623; 87624; 88142 ==

== ENCOUNTER → 2023-02-12 | Outpatient (CLI) | payer BC, SELFPAY ==
[2023-02-12 15:39] LABS: Thyroid Stim Hormone (TSH) 1.14 uIU/mL (0.358-3.74)
== END | disposition home or self-care (01) ==
LOC: BIMLAB 13:22
PROVIDERS: PCP Family Medicine; Visit Provider Family Medicine
DX: E03.9 Hypothyroidism, unspecified (principal)
CPT/HCPCS: 36415; 84443

== ENCOUNTER → 2023-07-20 | Outpatient (CLI) | payer BC, SELFPAY ==
--- NOTE | 2023-07-20 11:52 | BI_ITS ---
MAMMOGRAPHY - BILATERAL SCREENING REASON FOR EXAM: Female, 53 years old. Routine annual screening examination. PERTINENT HISTORY: Mother with breast cancer. TECHNIQUE: Digital bilateral breast koko (3D mammographic acquisition) in the CC and MLO projections. 2-D mediolateral oblique (MLO) and craniocaudad (CC) views of both breasts were obtained. CAD: Full Field Digital Mammography with Computer Added Detection was performed. COMPARISON: Comparison is made with prior study July 16, 2022 and July 15, 2021. FINDINGS: Breast Composition: The breasts are extremely dense, which lowers the sensitivity of mammography. There are no dominant masses or suspicious calcifications. Stable small bilateral fat-containing axillary lymph nodes. No other significant abnormalities are identified. There has been no significant change since the prior study. BI/SCRN MAMM (CAD)W/KOKO BILAT IMPRESSION: Stable bilateral screening mammogram. Yearly follow-up mammogram recommended. (A) ASSESSMENT CATEGORY: BIRADS Category 2: Benign. A letter regarding these results will be sent to the patient by the facility within 30 days. Approximately 10% of breast cancers are not detected by mammography. A normal mammogram should not delay biopsy of a clinically suspicious abnormality. [id number] Electronically Signed: Josh Miranda MD at 12:39 EDT ,
== END | disposition home or self-care (01) ==
LOC: OPBI 11:52
PROVIDERS: PCP Family Medicine; Visit Provider Family Medicine
DX: Z12.31 Encounter for screening mammogram for malignant neoplasm of breast (principal); Z80.3 Family history of malignant neoplasm of breast
CPT/HCPCS: 77063; 77067

== ENCOUNTER → 2023-12-24 | Outpatient (CLI) | payer BC, SELFPAY ==
[2023-12-24 12:44] LABS: ALB/GLOB Ratio 0.6 RATIO (0.9-2.4); AST(SGOT) 16 U/L (15-37); Alanine Aminotransfer ALT/SGPT 21 U/L (13-56); Albumin, Serum 3.1 g/dL (3.2-5.0); Alkaline Phosphatase 74 U/L (45-117); Anion Gap 7 (5-15); BUN 11 mg/dL (7-18); BUN/Creat Ratio 10.3 RATIO (10-20); Calcium,Total 9.2 mg/dL (8.5-10.1); Chloride 101 mmol/L (98-107); Creatinine, Serum 1.07 mg/dL (0.55-1.02); EST Glomerular Filtration Rate 57 mL/min (>60); Est Glom Filt Rate - Afr Amer 69 mL/min (>60); Globulin 4.8 g/dL (2.2-4.2); Glucose 80 mg/dL (74-106); Potassium 4.3 mmol/L (3.5-5.1); Protein, Total 7.9 g/dL (6.4-8.2); Sodium Level 135 mmol/L (136-145); T4 Free Direct 1.29 ng/dL (0.76-1.46)
== END | disposition home or self-care (01) ==
LOC: BIMLAB 10:26
PROVIDERS: PCP Family Medicine; Referring Provider Family Medicine; Visit Provider Family Medicine
DX: E03.9 Hypothyroidism, unspecified (principal)
CPT/HCPCS: 36415; 80053; 84439; 84443

== ENCOUNTER → 2024-07-20 | Outpatient (CLI) | payer BC, SELFPAY ==
--- NOTE | 2024-07-20 10:30 | BI_ITS ---
EXAM: SCRN MAMM (CAD)W/KOKO BILAT 07/20/2024 CLINICAL HISTORY: F, Age 54 y/o , SCREENING TECHNIQUE: Bilateral screening digital breast tomosynthesis with 2D and 3D images. Computer aided detection. COMPARISON: Prior exam(s) dated 07/20/2023, 07/16/2022. FINDINGS: TISSUE DENSITY: The breast tissue is heterogenously dense, which may obscure small masses. The mammogram demonstrates that the patient has dense breasts. Supplemental screening with whole breast ultrasound or MRI may be considered for further evaluation. Bilateral Breast Mammographic Findings: No significant masses, calcifications or other abnormalities are identified. BI/SCRN MAMM (CAD)W/KOKO BILAT IMPRESSION: Right Breast: BIRADS 1 NEGATIVE. Left Breast: BIRADS 1 NEGATIVE. OVERALL FINAL ASSESSMENT: BIRADS 1 NEGATIVE. RECOMMENDATION: Routine annual follow-up in 1 Year A letter with findings and recommendations will be mailed to the patient. Reading Location: [id number]
== END | disposition home or self-care (01) ==
LOC: OPBI 10:19
PROVIDERS: PCP Family Medicine; Referring Provider Family Medicine; Visit Provider Family Medicine
DX: Z12.31 Encounter for screening mammogram for malignant neoplasm of breast (principal)
CPT/HCPCS: 77063; 77067

== ENCOUNTER → 2024-12-13 | Outpatient (CLI) | payer BC, SELFPAY ==
[2024-12-13 17:30] LABS: AST(SGOT) 18 U/L (<=31); Alanine Aminotransfer ALT/SGPT 12 U/L (<=34); Albumin, Serum 4.1 g/dL (3.5-5.0); Alkaline Phosphatase 47 U/L (35-104); Anion Gap 11 (5-15); BUN 12 mg/dL (4-19); BUN/Creat Ratio 10.5 RATIO (10-20); Calcium,Total 9.3 mg/dL (7.6-11.0); Carbon Dioxide 25.3 mmol/L (21.0-32.0); Chloride 101 mmol/L (98-108); Globulin 3.0 g/dL (2.2-4.2); Glucose 79 mg/dL (70-99); Potassium 4.5 mmol/L (3.3-5.1)
== END | disposition home or self-care (01) ==
LOC: BIMLAB 15:43
PROVIDERS: PCP Family Medicine; Referring Provider Family Medicine; Visit Provider Family Medicine
DX: E03.9 Hypothyroidism, unspecified (principal); N28.9 Disorder of kidney and ureter, unspecified
CPT/HCPCS: 36415; 80053; 84443

== ENCOUNTER 2024-12-23 11:00 | Emergency (ER) | payer BC, SELFPAY ==
[2024-12-23 11:01] VITALS: BP 148/82; PULSE 102; PULSE 106; RESP 18; TEMP 36.1; O2SAT 98; BMI 21.9
--- NOTE | 2024-12-23 11:13 | EKG12_ITS ---
Test Reason : CP Blood Pressure : */* mmHG Vent. Rate : 99 BPM Atrial Rate : 99 BPM P-R Int : 168 ms QRS Dur : 74 ms QT Int : 368 ms P-R-T Axes : 54 81 30 degrees QTcB Int : 472 ms Normal sinus rhythm Cannot rule out Septal infarct , age undetermined Abnormal ECG Confirmed by Jamal Knutson ([id number]), make up editor LUX LIZARRAGA ([id number]) on 12/26/2024 1:09:01 PM Referred By: NEHAL Confirmed By: Jamal Knutson
--- NOTE | 2024-12-23 11:15 | ED.VIS.CHEST ---
HPI History of Present Illness Chief Complaint: Palpitations Narrative Narrative: Patient is a 54-year-old female with past medical history of COPD, tobacco use, depression, anxiety, IBS, WPW, who presents to the emergency department chief complaint of palpitations and chest pain. Patient states this been going on for 2 to 3 days significant other bedside states that they recently took her off control and placed her on the hormone replacement therapy and ever since then she has had the symptoms. States that nothing makes her symptoms better or worse. States that she is coughing up clear stuff but states that this is her allergies. States that she does not have any inhalers at home. According to his significant other bedside he has been ill recently as well. Denies any recent travel history denies history of blood clots [facility] Medical History Postablative hypothyroidism Neck pain on right side Allergic rhinitis Hyperthyroidism Balyd-Wiyloutzn-Mnyno (WPW) syndrome Allergies Chronic neck and back pain Severe headache Shoulder pain Home Medications ?Medication ?Instructions ?Recorded ?Last Taken ?Type psyllium husk 0.52 gram capsule 0.52 g PO QD-QID PRN constipation 10/19/20 Unknown Rx (Metamucil) #28 caps levothyroxine 75 mcg tablet 75 mcg PO DAILY #120 tabs 08/04/24 Unknown Rx propranolol 20 mg tablet 20 mg PO BID #180 tabs 08/04/24 Unknown Rx escitalopram oxalate 10 mg tablet 10 mg PO DAILY #90 tabs 11/29/24 Unknown Rx estradiol 1 mg tablet (Estrace) 1 mg PO QDAY 3 weeks #60 tabs 12/13/24 Unknown Rx albuterol sulfate 90 mcg/actuation 2 inh inhalation Q4H PRN shortness 12/23/24 Unknown Rx breath activated powder inhaler of breath #1 ea doxycycline hyclate 100 mg capsule 100 mg PO BID 5 days #10 caps 12/23/24 Unknown Rx Allergy/AdvReac Type Severity Reaction Status Date / Time carbamazepine (From Tegretol) Allergy Severe Throat Verified 12/23/24 11:02 swollen, rash Family History Other No pertinent family history Surgical History History of nasal surgery Social History Smoking Status: Current every day smoker tobacco type: cigarettes alcohol intake: never substance use type: does not use what type of physical activity do you participate in: walking ROS ROS ED ROS Narrative Constitutional: Denies any fevers, chills, headaches, lightheadedness Eyes: Denies double vision Cardiovascular: Wounds of chest discomfort on the left side and palpitations Respiratory: When the shortness of breath as noted above as well as coughing Abdomen: Denies abdominal pain nausea vomit diarrhea : Denies any urinary symptoms Neurological: Denies numbness, weakness, tingling Musculoskeletal: denies back pain Skin: Denies any rashes or lesions EXAM Physical Exam Narrative Exam Narrative: General: Patient was lying in bed rest comfortably did appear to be anxious Head: Atraumatic, normocephalic Eyes: PERRL bilaterally, EOMI bilaterally, no conjunctival injection noted Neck: Soft, supple, trachea midline Cardiovascular: Patient tachycardic with a regular rhythm Respiratory: Patient has diffuse end expiratory wheezing noted bilaterally Abdomen: Soft, nondistended, nontender to palpation Extremities: +5/5 strength noted in the bilateral lower extremities, radial pulses +2/4 in the bilateral extremities, no pedal edema exam Neurological: Patient following commands knew that she was at [facility] year is 2024 Skin: Warm, dry, intact no rashes or lesions noted Const Vital Signs: 12/23/24 11:01 12/23/24 11:01 12/23/24 11:04 Temperature 97 F L Temperature Source Temporal Pulse Rate 106 H 102 H Respiratory Rate 18 Respiratory Effort Normal Respiratory Pattern Blood Pressure 148/82 H Blood Pressure Mean 104 Pulse Ox 98 Oxygen Delivery Method Room Air 12/23/24 11:13 12/23/24 11:21 12/23/24 13:01 Temperature Temperature Source Pulse Rate 88 80 Respiratory Rate 18 18 Respiratory Effort Respiratory Pattern Normal Blood Pressure 141/87 H Blood Pressure Mean 105 Pulse Ox 95 Oxygen Delivery Method Room Air Room Air MDM MDM MDM Narrative Medical decision making narrative: Patient is a 54-year-old female who presents to the emergency department chief complaint chest pain and palpitations. On the differential diagnose includes but limited to ACS, pneumonia, pneumothorax, COPD exacerbation, electrolyte abnormality. Once workup is obtained reviewed she will be reevaluated. Patient be given IV fluids. Patient is very anxious she will be given Ativan. Patient CBC was reviewed which showed no evidence leukocytosis white blood count normal 8.1, hemoglobin 15, platelet count 277. Patient INR normal at 1, PT of 12. Patient sodium was 139, potassium normal at 4, creatinine normal at 1.12. Patient troponin was 6 with a delta troponin of less than 6. Patient's EKG reviewed showed sinus rhythm with a rate of 99 bpm. Patient's proBNP normal at 45, TSH normal at 1.40 and a free T4 and T3 of 1.70 and 2.9 respectively.Patient's CTA of the chest reviewed which showed no evidence of PE minimal ground glass inferior right upper lobe may represent a small focus of pneumonitis mild emphysema. Discussed the results with the patient she like to go home at this point time. Patient be given a prescription for inhaler as well as doxycycline for 5 days. She states that she does not want any steroids as she does not like how they make her feel. She advised follow-up with her doctor in outpatient setting she is also given a Holter monitor prescription as well. She is encouraged return for worsening symptoms or any other concerns. Significant other is also agreeable this plan all question concerns answered she was discharged home in stable condition Lab Data Labs: Laboratory Results - last 24 hr 12/23/24 12/23/24 11:22 13:32 WBC 8.1 RBC 4.65 Hgb 15.0 Hct 44.1 MCV 94.8 MCH 32.3 H MCHC 34.0 RDW Std Deviation 42.9 RDW Coeff of Anni 12.3 Plt Count 277 MPV 9.6 Immature Gran % (Auto) 0.200 Neut % (Auto) 59.7 Lymph % (Auto) 30.7 [place] % (Auto) 5.8 Eos % (Auto) 2.7 Baso % (Auto) 0.9 Absolute Neuts (auto) 4.9 Absolute Lymphs (auto) 2.49 Nucleated RBC % 0 PT 12.9 INR 1.0 APTT 23.0 L Sodium 139 Potassium 4.0 Chloride 101 Carbon Dioxide 26.6 Anion Gap 11 BUN 11 Creatinine 1.12 Estim Creat Clear Calc 61.41 Est GFR (MDRD) Non-Af 59 L BUN/Creatinine Ratio 10.0 Glucose 95 Calcium 9.7 Magnesium 1.9 Troponin T High Sens 6 Troponin T Hi Sens 2 Hr < 6 NT pro BNP II 45 TSH 1.440 Free T4 1.70 H Free T3 pg/dL 2.9 Radiography Diagnostic Testing: Clinical Impression(s) from Imaging Studies Chest CTA 12/23/24 11:47 IMPRESSION: 1. No acute or chronic pulmonary embolus. 2. Minimal ground-glass inferior right upper lobe may represent a small focus of pneumonitis. Mild emphysema. Reading Location: [id number] Discharge Plan Triage Chief Complaint: Palpitations ED Provider: Zafar Haddad Dx/Rx/DC Orders Clinical Impression: Cough, Chest pain, Palpitations Prescriptions: New albuterol sulfate 90 mcg/actuation aerosol powdr breath activated 2 inh inhalation Q4H PRN (Reason: shortness of breath) Qty: 1 0RF doxycycline hyclate 100 mg capsule 100 mg PO BID 5 Days Qty: 10 0RF No Action psyllium husk [Metamucil] 0.52 gram capsule 0.52 g PO QD-QID PRN (Reason: constipation) Qty: 28 0RF Rx Instructions: Take each capsule with 8oz of water. estradiol [Estrace] 1 mg tablet 1 mg PO QDAY 21 Days Qty: 60 2RF propranolol 20 mg tablet 20 mg PO BID Qty: 180 1RF levothyroxine 75 mcg tablet 75 mcg PO DAILY Qty: 120 1RF Rx Instructions: one daily except two on Thursday escitalopram oxalate 10 mg tablet 10 mg PO DAILY Qty: 90 1RF Other Ambulatory Orders: Cardiac Holter Monitor, 48 Hrs (Routine) Timeframe: 1 Week Facility: [facility] - Location: Cardiovascular Services Ordered By: Dr. Zafar Haddad Primary Care Provider: Franko Powers Referrals: Franko Powers, DO [Primary Care Provider] - Activity Restrictions/Additional Instructions: Use inhaler as prescribed as well as the antibiotic to ensure that this prevents you from developing potential pneumonia. Wear Holter monitor as prescribed. Return with worsening symptoms or any concerns. Your blood work did not show any acute findings your CT of your chest did not show any evidence of blood clots. Print Language: Vietnamese Disposition Disposition: Home, Self Care
[2024-12-23 11:21] VITALS: PULSE 88; RESP 18
[2024-12-23 11:28] LABS: Hematocrit 44.1 % (37-47); Hemoglobin 15.0 g/dL (12.0-15.0); Immature Granulocytes Count 0.020 X10^3/uL (0.0-0.0); Mean Corp Hgb Conc 34.0 g/dL (32-36); Mean Corpuscular Volume 94.8 fL (81-99); Mean Platelet Vol. 9.6 fl (6.2-12.0); NRBC Flagged by Analyzer 0 % (0-5); Platelet Count 277 K/mm3 (150-450); RBC Distribution Width CV 12.3 % (11.6-14.6); RBC Distribution Width SD 42.9 fl (35.1-43.9); Red Blood Count 4.65 M/mm3 (4.2-5.4); White Blood Count 8.1 K/mm3 (4.4-11.0)
[2024-12-23] MEDS: 0.9% Normal Saline (1000mL) 1,000 ML 999 ML IV (11:36)
[2024-12-23 11:43] LABS: Partial Thromboplast Time 23.0 Seconds (24.1-36.2); Prothrombin Time (Protime)PT. 12.9 SECONDS (11.7-14.9)
--- NOTE | 2024-12-23 11:47 | CT_ITS ---
PROCEDURE: CTA CHEST W/WO CONTRAST 12/23/2024 REASON FOR EXAM: PALPITATIONS ON HORMONE REPLACEMENT THERAPY TECHNIQUE: Procedure Code: [id number] Modality: CT Procedure: CTA CHEST W/WO CONTRAST Multiplanar Sagittal and Coronal images were obtained. 3D post processing was performed CONTRAST: Isovue 370 VOLUME: 100 mL One or more dose reduction techniques were used (e.g., Automated exposure control, adjustment of the mA and/or kV according to patient size, use of iterative reconstruction technique). RADIATION DOSE SUMMARY: CTDlvol: 10 mGy DLP: 157 mGycm COMPARISON: August 29, 2020 # of known CTs in the past 12 months: 0 # of known Cardiac Nuclear Medicine Studies in the past 12 months: 0 FINDINGS: Thoracic Aorta: Normal caliber Heart: Normal-size. No pericardial effusion. Pulmonary Vessels: The timing and quality of the contrast bolus is diagnostic. There is no evidence of acute or chronic pulmonary embolus. Hardware: Normal Lymph nodes: None appear enlarged. Lungs and Airways: Mild scarring at the lung apices. Mild emphysema. Ground- glass opacity inferior medial right upper lobe is non-specific. Pleura: No pleural effusion or pneumothorax. Upper Abdomen: Unremarkable Bones: Normal CT/CTA Chest W/WO Contrast IMPRESSION: 1. No acute or chronic pulmonary embolus. 2. Minimal ground-glass inferior right upper lobe may represent a small focus of pneumonitis. Mild emphysema. Reading Location: [id number]
[2024-12-23 12:00] LABS: Anion Gap 11 (5-15); BUN 11 mg/dL (4-19); BUN/Creat Ratio 10.0 RATIO (10-20); Calcium,Total 9.7 mg/dL (7.6-11.0); Carbon Dioxide 26.6 mmol/L (21.0-32.0); Chloride 101 mmol/L (98-108); Estimated Creatinine Clearance 61.41 ml/min (50-250); Free T3 2.9 pg/mL (2.18-3.98); Glucose 95 mg/dL (70-99); Magnesium 1.9 mg/dL (1.5-2.2); Potassium 4.0 mmol/L (3.3-5.1); Pro- Brain NATRIURETIC PEPTIDE 45 pg/mL (<=900); Troponin T High Sensitivity 6 ng/L (<=14)
[2024-12-23 12:42] VITALS: O2SAT 90
[2024-12-23 13:01] VITALS: BP 141/87; PULSE 80; RESP 18; O2SAT 95
[2024-12-23 13:55] LABS: Troponin T High Sens 2 HR < 6 ng/L (<=14)
[2024-12-23 14:23] VITALS: BP 134/78; PULSE 64; RESP 18; TEMP 37.1; O2SAT 99
== END 2024-12-23 14:24 | disposition home or self-care (01) ==
PROVIDERS: Emergency Provider Emergency Medicine; PCP Family Medicine; Visit Provider Emergency Medicine
DX: R00.2 Palpitations (principal); E05.90 Thyrotoxicosis, unspecified without thyrotoxic crisis or storm; F17.210 Nicotine dependence, cigarettes, uncomplicated; R07.9 Chest pain, unspecified; Z79.890 Hormone replacement therapy; R05.9 Cough, unspecified; R06.02 Shortness of breath
CPT/HCPCS: 71275; 80048; 83735; 83880; 84439; 84443; 84481; 84484; 85025; 85610; 85730; 93005; 94640; 96361; 96374; 99284; Q9967; A4216